=== PATIENT | male | born 1965 | race African-American/Black ===

== ENCOUNTER 2020-01-24 11:40 | Emergency (ER) | payer OTHER ==
[~2020-01-24] VITALS: Ht 172.7 cm; Wt 80.0 kg
[~2020-01-24 11:40] MED LIST: HUMULIN R1 M1 SC; LEVAQUIN750 MG PO; LEVEMIR FL100 UNIT/M SC; LORTAB 7.57.5 MG PO
[2020-01-24 12:30] LABS: HEMATOCRIT 44.8 % (39.0-50.0); IMMATURE GRANULOCYTES 0.2 % (0.0-5.0); MEAN CELL VOLUME 85.2 fL CALC (80.0-100.0); MEAN CORPUSCULAR HGB 29.3 pG CALC (26.0-32.0); MEAN CORPUSCULAR HGB CONC 34.4 g/dL CAL (32.0-36.0); NEUT# 2.42 thou/uL (1.82-7.42); RED BLOOD COUNT 5.26 mill/uL (4.70-6.10); RED CELL DISTRI WIDTH 11.9 % (11.5-15.5)
[2020-01-24] MEDS ORDERED: LISINOPRIL5 MG PO (12:36)
[2020-01-24 12:40] LABS: HEMOGLOBIN 15.4 g/dl (14.0-18.0)
[2020-01-24 12:42] LABS: ALKALINE PHOSPHATASE 101 u/l (38-126); ANION GAP 12 (6-22 (CALC)); BILIRUBIN, TOTAL 0.5 mg/dL (0.0-1.4); BUN 12 mg/dL (9-20); BUN/CREATININE RATIO 18 (12-20 (CALC)); CARBON DIOXIDE 24 mmol/l (22-30); CHLORIDE 107 mmol/l (95-108); CREATININE 0.7 mg/dL (0.7-1.3); GFR > 60 ML/MIN (>=60 (CALC)); GFR FOR AFR.AMER. > 60 ML/MIN (>=60 (CALC)); POTASSIUM 3.9 mmol/l (3.5-5.1); SGOT/AST 26 u/l (17-59); SODIUM 139 mmol/l (137-146)
[2020-01-24 12:43] LABS: ALBUMIN 4.1 g/dL (3.2-5.0); TOTAL PROTEIN 7.7 g/dL (6.3-8.2)
[2020-01-24 13:45] VITALS: BP 156/89
== END 2020-01-24 14:15 | DRG 638 ==
LOC: ED 11:40
PROVIDERS: Family Medicine
DX: E11.649 Type 2 diabetes mellitus with hypoglycemia without coma (principal); I47.1 Supraventricular tachycardia; Z79.4 Long term (current) use of insulin; Z20.828 Contact with and (suspected) exposure to other viral communicable diseases